=== PATIENT | female | born 2000 | race Caucasian/White ===

== ENCOUNTER → 2018-02-20 10:47 | Outpatient (CLI) | payer MEDICAID, SELFPAY ==
[2018-02-20 14:36] LABS: Free T4 (Free Thyroxine) 1.05 ng/dl (0.78-1.34); Thyroid Stimulating Hormone 4.13 uIU/ml (0.516-4.13)
[2018-02-22 21:12] LABS: Thyroglobulin Level <1.0 IU/mL (0.0-0.9); Thyroid Peroxidase Antibodies 14 IU/mL (0-26)
== END ==
PROVIDERS: PCP Nurse Practitioner Family; Visit Provider Nurse Practitioner Family
DX: R94.6 Abnormal results of thyroid function studies (principal)
CPT/HCPCS: 36415; 84439; 84443; 86376; 86800

== ENCOUNTER → 2018-05-18 10:16 | Outpatient (CLI) | payer MEDICAID, SELFPAY ==
[2018-05-18 13:56] LABS: Basophils % 0.4 % (0.1-2.0); Eosinophils # 0.4 K/mm3 (0.0-0.4); Eosinophils % 4.6 % (0.1-12.0); Hematocrit 39.5 % (37.0-47.0); Hemoglobin 13.5 g/dL (12.2-16.2); Lymphocytes # 1.7 K/mm3 (0.7-4.5); Lymphocytes % 18.4 K/mm3 (10-50); Mean Corpuscular HGB Conc 34.2 g/dL (31.8-35.4); Mean Corpuscular Hemoglobin 28.6 pg (27.0-31.2); Mean Corpuscular Volume 83.5 fl (81-99); Mean Platelet Volume 7.9 fl (7.4-10.4); Monocytes # 0.5 K/mm3 (0.1-1.0); Neutrophils # 6.7 K/mm3 (1.8-7.8); Neutrophils % 71.6 % (37.0-80.0); Platelet Count 362 K/mm3 (142-424); Red Blood Count 4.73 M/mm3 (4.20-5.40); Red Cell Distribution Width 12.5 % (11.5-17.5); White Blood Count 9.4 K/mm3 (4.5-13.0)
[2018-05-18 13:57] LABS: Alanine Aminotransferase 23 U/L (12-78); Albumin Level 3.7 gm/dL (3.4-5.0); Albumin/Globulin Ratio 0.9 (1.1-1.8); Alkaline Phosphatase 90 U/L (46-116); Aspartate Amino Transferase 6 U/L (15-37); Bilirubin,Total 0.3 mg/dL (0.2-1.0); Blood Urea Nitrogen 12 mg/dL (7-18); Calcium 9.2 mg/dL (8.5-10.1); Carbon Dioxide 23 mmol/L (21.0-32.0); Chloride 105 mmol/L (98-107); Estimated Glomerular Filt Rate 107 ml/min (>60); GFR (African American) 129 ML/MIN (>60); Globulin 3.9 gm/dl (1.3-3.2); Glucose 92 mg/dL (74-106); Sodium 141 mmol/L (136-145); Thyroid Stimulating Hormone 3.31 uIU/ml (0.516-4.13); Total Protein,Serum 7.6 gm/dL (6.4-8.2)
[2018-05-19 18:42] LABS: Vitamin D 25 Hydroxy 12.2 ng/mL (30.0-100.0)
[2018-05-19 18:43] LABS: Vitamin B12 247 pg/mL (232-1245)
== END ==
PROVIDERS: Visit Provider Nurse Practitioner Family
DX: R53.83 Other fatigue (principal); E55.9 Vitamin D deficiency, unspecified
CPT/HCPCS: 36415; 80053; 82607; 82652; 84443; 85025

== ENCOUNTER → 2018-05-25 09:00 | Outpatient (CLI) | payer MEDICAID, SELFPAY ==
--- NOTE | 2018-05-25 | CA_ITS ---
PROCEDURE: 2-D M-mode and color Doppler study INDICATIONS FOR THE TEST: Chest pain+ COPD Heart Murmur Tobacco Smoking Palpitations+ Fatigue Syncopenear Edema Hypertension Diabetes Mellituspre Rheumatic Fever SOB MOELLER+Obesity Hyperlipidemia Family History HD+ Additional History ordered as a bubble study PATIENT INFORMATION HEIGHT: 66 WEIGHT: 295 GENDER: Female B/P: 110/72 2-D/M-MODE INTERPRETATION: 2-D MEASUREMENTS OBSERVED VALUES IN CMS Right Ventricular Dimension (RVDd) 1.4 Interventricular Septum (Thickness)(IVsd) 1.0 Left Ventricular Internal Dimensions(LVIDd) 5.0 Left Ventricular Posterior Wall (Thickness)(LVPWd) 1.0 Aortic Root 2.7 Aortic Cusp Separation 2.1 Left Atrial Dimensions (LAD) 3.0 2D 1. Left atrium is normal size, left ventricle is normal size, there is no concentric left ventricular hypertrophy, visually estimated ejection fraction 55% with no obvious regional wall motion abnormality. 2. The right atrium and right ventricle are normal size and contractility. 3. The aortic, mitral and tricuspid valve are structurally normal. 4. The pulmonic valve is poorly visualized. 5. No significant pericardial effusion noted. DOPPLER INTERROGATION: Doppler interrogation of the aortic, mitral and tricuspid valve reveals presence of mild mitral and tricuspid regurgitation, tricuspid regurgitation jet velocity is insufficient for calculation of the right ventricular systolic pressure, diastolic parameters are within normal range. Agitated saline contrast study fails to identify intracardiac shunt. CONCLUSION: 1. Normal left ventricular size, preserved left ventricular systolic function, visually estimated ejection fraction of 55% with no obvious regional wall motion abnormality, diastolic parameters are within normal range. 2. Mild mitral and tricuspid regurgitation. 3.Agitated saline contrast study fails to identify intracardiac shunt. 4. No significant pericardial effusion noted.
== END ==
PROVIDERS: PCP Nurse Practitioner Family; Visit Provider Nurse Practitioner Family
DX: R42 Dizziness and giddiness (principal)
CPT/HCPCS: 93306

== ENCOUNTER → 2018-06-08 12:55 | Outpatient (CLI) | payer MEDICAID, SELFPAY | PROVIDERS: PCP Nurse Practitioner Family; Visit Provider Nurse Practitioner Family | DX: G47.10 Hypersomnia, unspecified (principal); E66.9 Obesity, unspecified | CPT/HCPCS: 95806 ==

== ENCOUNTER 2018-10-03 10:00 | Outpatient (RCR) | payer MEDICAID, SELFPAY ==
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
--- NOTE | 2018-09-12 10:35 | [facility]H.RHREAS ---
Rehab Reassessment Rehab OP Re-assessment Start: 09/12/18 10:09 Freq: Status: Active Protocol: Document 09/12/18 10:09 BENIYULIET (Rec: 09/12/18 10:35 BENISINAALLEY [id number]) Electronically Signed By Alexander Hanna, PT 09/12/18 10:09 Rehab Re-assessment Subjective Subjective Pt reports 40% improvement since start of care. Objective Objective Notes AROM: flx 72, ext 20, SBr 25, SBl 20 MMT: WNL NEURO: WNL TTP: Lumbar spine paraspinals, bilateral upper gluteal mm. Pain: 6/10 currently Assessment Progress Assessment Slower Than Expected Assessment Notes Pt progressing slower than expected secondary to illness/ time constraints. She has completed 3 treatment visits to date. She experineces intermittent relief for approx 1-2 days post-Rx. Rx has consisted of BLE stretching, core stabilization exercises, dry needling and modalities for pain mod/anti-inflammatory purposes. She continues to experience functional limitations with all sitting/ standing/bending/lifting acitivity. Patient goals met None Goals Not Met All Revised Goals NA Plan Plan Continue with current POC. Frequency of Therapy 2x/week Duration of therapy 4 weeks Time and Billing Re-Eval Time 15 Re-Eval Billing Units 1 PHYSICIAN CERTIFICATION: I certify the specified therapy services for Vilma Desouza are required, authorized, and reviewed every 30 days.
== END 2018-10-03 10:05 | disposition home or self-care (01) ==
LOC: PT 10:00
PROVIDERS: Visit Provider Internal Medicine Adolescent Medicine
DX: M51.36 Other intervertebral disc degeneration, lumbar region (principal)
CPT/HCPCS: 97010; 97014; 97110; 97140; 97163; 97164; G0283